=== PATIENT | female | born 1970 | race Caucasian/White ===

== ENCOUNTER 2016-11-26 22:57 | Emergency (ER) | payer OTHER ==
[2016-11-26 23:05] VITALS: BP 113/65; PULSE 70; TEMP 98; BMI 22.6
[2016-11-26] MEDS ORDERED: KETOROLAC TROMETHAMINE 60 MG/2 ML VIAL IM ONE (23:30)
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
== END 2016-11-26 23:52 | disposition home or self-care (01) ==
LOC: FER 22:57
PROC: 3E0233Z Introduction of Anti-inflammatory into Muscle, Percutaneous Approach (ICD-10-PCS; principal; 2016-11-26)
DX: S39.012A Strain of muscle, fascia and tendon of lower back, initial encounter (principal); V43.52XA Car driver injured in collision with other type car in traffic accident, initial encounter; Y93.89 Activity, other specified; Y92.410 Unspecified street and highway as the place of occurrence of the external cause
CPT/HCPCS: 99281-25

== ENCOUNTER 2020-10-26 04:09 | Day surgery (SDC) | payer OTHER ==
[2020-10-25 10:39] VITALS: BMI 25.2
[~2020-10-26 04:09] MED LIST: BUPIVACAINE HCL/PF 0.5% (5MG/ML) 10 ML VIAL IJ ONE
[2020-10-26] MEDS ORDERED: PROPOFOL 20 ML ONE (09:00)
[2020-10-26] MEDS ORDERED: MIDAZOLAM HCL 2 MG/2 ML SINGLE DOSE VIAL ONE (09:01)
[2020-10-26] MEDS ORDERED: ceFAZolin SODIUM 1 GM VIAL IVPB ONE (09:45)
[2020-10-26] MEDS ORDERED: BUPIVACAINE HCL/PF 0.5% (5MG/ML) 10 ML VIAL IJ ONE (10:15)
[2020-10-26] MEDS ORDERED: oxyCODONE HCL 5 MG TABLET PO PRN ×2 (10:46)
[2020-10-26] MEDS ORDERED: ONDANSETRON 4 MG/2 ML VIAL IVPUSH PRN (10:46)
[2020-10-26] MEDS ORDERED: LACTATED RINGERS SOLUTION 1,000 ML IV SCH (11:00)
[2020-10-26] MEDS ORDERED: ONDANSETRON 4 MG/2 ML VIAL ONE (11:29)
[2020-10-26] MEDS ORDERED: PROMETHAZINE HCL 25 MG/1 ML VIAL ONE (11:55)
[2020-10-26 15:19] VITALS: BP 99/48; PULSE 75; TEMP 96.6
== END 2020-10-26 15:20 | disposition home or self-care (01) ==
LOC: JASU-SURG 04:09
PROVIDERS: ATTEND Orthopaedic Surgery
PROC: 0SBC4ZZ Excision of Right Knee Joint, Percutaneous Endoscopic Approach (ICD-10-PCS; principal; 2020-10-26 09:00)
DX: S83.241A Other tear of medial meniscus, current injury, right knee, initial encounter (principal); X58.XXXA Exposure to other specified factors, initial encounter; Y93.9 Activity, unspecified; Y92.9 Unspecified place or not applicable; Y99.9 Unspecified external cause status
CPT/HCPCS: 81025; 94760

== ENCOUNTER 2021-11-30 12:24 | Emergency (ER) | payer OTHER ==
[2021-11-30 12:46] VITALS: BMI 24.8
[2021-11-30] MEDS ORDERED: ACETAMINOPHEN 1000 MG/100 ML BAG IVPB ONE (12:54)
[2021-11-30] MEDS ORDERED: morphine CARPU-JECT 2 MG/1 ML DISP.SYRIN IVPUSH ONE (12:59)
[2021-11-30] MEDS ORDERED: ACETAMINOPHEN INJECTION 100 ML IVPB ONE (13:00)
[2021-11-30 13:30] LABS: HEMATOCRIT 39.1 % (32.4-45.2); HEMOGLOBIN 12.9 GM/dL (10.7-15.3); MCH 27.3 pg (25.7-33.7); MEAN CELL VOLUME 82.7 fl (80-96); MEAN PLT VOLUME 9.3 fl (7.5-11.1); PLATELET COUNT 235 10^3/uL (134-434); RBC 4.73 M/mm3 (3.60-5.2); RDW 14.5 % (11.6-15.6); WHITE BLOOD COUNT 7.1 K/mm3 (4.0-10.0)
[2021-11-30 13:37] LABS: INR 0.99 (0.83-1.09); PROTHROMBIN TIME (PATIENT) 11.4 SEC (9.7-13.0)
[2021-11-30 13:40] LABS: ACTIVATED PTT 29.1 SECONDS (25.2-36.5)
[2021-11-30 13:46] LABS: CHLORIDE 105 mmol/L (98-107); SODIUM 134 mmol/L (136-145)
[2021-11-30 13:50] LABS: CALCIUM 9.7 mg/dL (8.5-10.1)
[2021-11-30 13:51] LABS: ALBUMIN 3.9 g/dl (3.4-5.0); BLOOD UREA NITROGEN 18.8 mg/dL (7-18); CO2 23 mmol/L (21-32); GLUCOSE,RANDOM 97 mg/dL (74-106)
[2021-11-30 13:53] LABS: SGPT/ALT 23 U/L (13-61)
[2021-11-30 13:54] LABS: CREATININE 0.9 mg/dL (0.55-1.3); SGOT/AST 46 U/L (15-37)
[2021-11-30 13:55] LABS: BILIRUBIN,TOTAL 0.5 mg/dL (0.2-1)
[2021-11-30 13:56] LABS: ALK PHOS 66 U/L (45-117)
[2021-11-30 14:10] LABS: ANION GAP 6 MMOL/L (8-16)
[2021-11-30 16:29] LABS: EPI CELLS 36 /uL (0-25.1); HYALINE CASTS 2 /uL (0-3.1); URINE APPEARANCE CLOUDY; URINE BACTERIA 386 /uL (0-1359); URINE BILIRUBIN NEGATIVE (NEGATIVE); URINE COLOR YELLOW; URINE GLUCOSE (UA) NEGATIVE (NEGATIVE); URINE KETONE NEGATIVE (NEGATIVE); URINE LEUK ESTERASE TRACE (NEGATIVE); URINE NITRITE NEGATIVE (NEGATIVE); URINE PROTEIN NEGATIVE (NEGATIVE); URINE RBC 36 /uL (0-23.9); URINE UROBILINOGEN 0.2 mg/dL (0.2-1.0); URINE WBC 30 /uL (0-25.8)
[2021-11-30 16:30] LABS: HCG,QUALITATIVE URINE Negative
[2021-11-30 17:21] LABS: BLOOD UREA NITROGEN 16.4 mg/dL (7-18)
[2021-11-30 17:24] LABS: CREATININE 0.6 mg/dL (0.55-1.3)
[2021-11-30 17:52] VITALS: BP 108/58; PULSE 69; TEMP 98.9
== END 2021-11-30 19:36 | disposition home or self-care (01) ==
LOC: JER 12:24
PROC: 3E0333Z Introduction of Anti-inflammatory into Peripheral Vein, Percutaneous Approach (ICD-10-PCS; principal; 2021-11-30)
PROC: 3E033NZ Introduction of Analgesics, Hypnotics, Sedatives into Peripheral Vein, Percutaneous Approach (ICD-10-PCS; 2021-11-30)
DX: N20.0 Calculus of kidney (principal)
CPT/HCPCS: 36415; 74176-TC; 76830-TC; 80048; 80053; 81003; 84484; 84703; 85027; 85610; 85730; 86850; 86900; 86901; 99285-25